=== PATIENT | male | born 1970 | race Caucasian/White ===

== ENCOUNTER 2020-08-07 09:43 | Observation (INO) | payer BC, OTHER ==
[2020-08-07] MEDS ORDERED: NITROGLYCERIN OINT 1 INCH/GM PACKET TOPICAL STA (10:06)
[2020-08-07] MEDS ORDERED: ASPIRIN 81 MG PO STA (10:06)
[2020-08-07 10:23] LABS: Basophils # (A) 0.1 k/uL (0-0.2); Basophils % (A) 1 %; Eosinophils # (A) 0.2 k/uL (0-0.7); Eosinophils % (A) 2 %; HCT 49.8 % (39.0-53.0); HGB 15.9 gm/dL (13.0-17.5); Lymphocytes # (A) 1.9 k/uL (1.0-4.8); Lymphocytes % (A) 20 %; MCH 30.3 pg (25.0-35.0); MCHC 31.9 g/dL (31.0-37.0); MCV 94.9 fL (80.0-100.0); Monocytes # (A) 0.5 k/uL (0-1.0); Monocytes % (A) 5 %; Neutrophils # (A) 6.8 k/uL (1.3-7.7); Neutrophils % (A) 71 %; Platelet Count 212 k/uL (150-450); RBC 5.25 m/uL (4.30-5.90); RDW 12.9 % (11.5-15.5); WBC 9.5 k/uL (3.8-10.6)
--- NOTE | 2020-08-07 10:31 | ED ---
General Adult HPI - General Chief complaint: Chest Pain Stated complaint: chest pain Time Seen by Provider: 08/07/20 09:45 Source: patient, RN notes reviewed, old records reviewed Mode of arrival: wheelchair Limitations: no limitations - History of Present Illness Initial comments: This is a 49-year-old male who presents emergency Department complaining of left-sided chest pain. Patient states been intermittent for about 6 months. Patient states this episode started yesterday and pretty significant at that time. Patient states he noticed a little radiation to his back as well as some shortness of breath. Patient states he hasn't come in the past because of the COVID but it was significant enough yesterday and did not go away today that he decided to come to the emergency department. Patient currently states it is an achiness in the left side of his chest. Patient denies any recent fever chills or new cough. Patient is a smoker and does have high cholesterol which is untreated. Patient denies any family history. Patient denies any headache patient denies lightheadedness dizziness or near syncopal episode. Patient denies any abdominal pain patient denies nausea vomiting or diarrhea. - Related Data Home Medications Medication Instructions Recorded Confirmed No Known Home Medications 08/07/20 08/07/20 Allergies Allergy/AdvReac Type Severity Reaction Status Date / Time No Known Allergies Allergy Verified 08/07/20 10:43 Review of Systems ROS Statement: Those systems with pertinent positive or pertinent negative responses have been documented in the HPI. ROS Other: All systems not noted in ROS Statement are negative. Past Medical History Past Medical History: Hyperlipidemia History of Any Multi-Drug Resistant Organisms: None Reported Past Surgical History: No Surgical Hx Reported Past Psychological History: No Psychological Hx Reported Smoking Status: Current every day smoker Past Alcohol Use History: None Reported Past Drug Use History: None Reported General Exam - General Exam Comments Initial Comments: GENERAL: Patient is well-developed and well-nourished. Patient is nontoxic and well- hydrated and is in mild distress. ENT: Neck is soft and supple. No significant lymphadenopathy is noted. Oropharynx is clear. Moist mucous membranes. Neck has full range of motion without eliciting any pain. EYES: The sclera were anicteric and conjunctiva were pink and moist. Extraocular movements were intact and pupils were equal round and reactive to light. Eyelids were unremarkable. PULMONARY: Unlabored respirations. Good breath sounds bilaterally. No audible rales rhonchi or wheezing was noted. CARDIOVASCULAR: There is a regular rate and rhythm without any murmurs gallops or rubs. Chest pain is not reproducible ABDOMEN: Soft and nontender with normal bowel sounds. SKIN: Skin is clear with no lesions or rashes and otherwise unremarkable. NEUROLOGIC: Patient is alert and oriented x3. Cranial nerves II through XII are grossly intact. Motor and sensory are also intact. Normal speech, volume and content. Symmetrical smile. MUSCULOSKELETAL: Normal extremities with adequate strength and full range of motion. No lower extremity swelling or edema. No calf tenderness. LYMPHATICS: No significant lymphadenopathy is noted PSYCHIATRIC: Normal psychiatric evaluation. Limitations: no limitations Course Vital Signs 08/07/20 09:46 Temperature 98.6 F Pulse Rate 74 Respiratory 18 Rate Blood Pressure 128/79 O2 Sat by Pulse 100 Oximetry Medical Decision Making - Medical Decision Making EKG shows normal sinus rhythm at 76 bpm MA interval is 172 QRS is 118 QT interval 370 QTC is 416. Patient's EKG shows no ST segment elevation or depression. Chest x-ray showed no acute abnormality. I spoke with [facility] admitted the patient reportedly orders and consult to cardiology. - Lab Data Result diagrams: 08/07/20 10:13 08/07/20 10:13 Lab Results 08/07/20 08/07/20 08/07/20 Range/Units 10:13 10:13 10:13 WBC 9.5 (3.8-10.6) k/uL RBC 5.25 (4.30-5.90) m/uL Hgb 15.9 (13.0-17.5) gm/dL Hct 49.8 (39.0-53.0) % MCV 94.9 (80.0-100.0) fL MCH 30.3 (25.0-35.0) pg MCHC 31.9 (31.0-37.0) g/dL RDW 12.9 (11.5-15.5) % Plt Count 212 (150-450) k/uL Neutrophils % 71 % Lymphocytes % 20 % Monocytes % 5 % Eosinophils % 2 % Basophils % 1 % Neutrophils # 6.8 (1.3-7.7) k/uL Lymphocytes # 1.9 (1.0-4.8) k/uL Monocytes # 0.5 (0-1.0) k/uL Eosinophils # 0.2 (0-0.7) k/uL Basophils # 0.1 (0-0.2) k/uL PT 10.0 (9.0-12.0) sec INR 1.0 (<1.2) APTT 24.4 (22.0-30.0) sec Sodium 139 (137-145) mmol/L Potassium 4.0 (3.5-5.1) mmol/L Chloride 105 (98-107) mmol/L Carbon Dioxide 24 (22-30) mmol/L Anion Gap 10 mmol/L BUN 8 L (9-20) mg/dL Creatinine 0.83 (0.66-1.25) mg/dL Est GFR (CKD-EPI)AfAm >90 (>60 ml/min/1.73 sqM) Est GFR (CKD-EPI)NonAf >90 (>60 ml/min/1.73 sqM) Glucose 118 H (74-99) mg/dL Calcium 9.6 (8.4-10.2) mg/dL Magnesium 1.9 (1.6-2.3) mg/dL Total Bilirubin 0.6 (0.2-1.3) mg/dL AST 28 (17-59) U/L ALT 20 (4-49) U/L Alkaline Phosphatase 75 (38-126) U/L Troponin I (0.000-0.034) ng/mL Total Protein 8.1 (6.3-8.2) g/dL Albumin 4.8 (3.5-5.0) g/dL 08/07/20 Range/Units 10:13 WBC (3.8-10.6) k/uL RBC (4.30-5.90) m/uL Hgb (13.0-17.5) gm/dL Hct (39.0-53.0) % MCV (80.0-100.0) fL MCH (25.0-35.0) pg MCHC (31.0-37.0) g/dL RDW (11.5-15.5) % Plt Count (150-450) k/uL Neutrophils % % Lymphocytes % % Monocytes % % Eosinophils % % Basophils % % Neutrophils # (1.3-7.7) k/uL Lymphocytes # (1.0-4.8) k/uL Monocytes # (0-1.0) k/uL Eosinophils # (0-0.7) k/uL Basophils # (0-0.2) k/uL PT (9.0-12.0) sec INR (<1.2) APTT (22.0-30.0) sec Sodium (137-145) mmol/L Potassium (3.5-5.1) mmol/L Chloride (98-107) mmol/L Carbon Dioxide (22-30) mmol/L Anion Gap mmol/L BUN (9-20) mg/dL Creatinine (0.66-1.25) mg/dL Est GFR (CKD-EPI)AfAm (>60 ml/min/1.73 sqM) Est GFR (CKD-EPI)NonAf (>60 ml/min/1.73 sqM) Glucose (74-99) mg/dL Calcium (8.4-10.2) mg/dL Magnesium (1.6-2.3) mg/dL Total Bilirubin (0.2-1.3) mg/dL AST (17-59) U/L ALT (4-49) U/L Alkaline Phosphatase (38-126) U/L Troponin I <0.012 (0.000-0.034) ng/mL Total Protein (6.3-8.2) g/dL Albumin (3.5-5.0) g/dL Disposition Clinical Impression: Chest pain Disposition: ADMITTED IP TO THIS [facility] Referrals: None,Stated [Primary Care Provider] - 1-2 days Time of Disposition: 11:37
[2020-08-07 10:32] LABS: Partial Thromboplastin Time 24.4 sec (22.0-30.0)
[2020-08-07 10:34] LABS: ALT 20 U/L (4-49); AST 28 U/L (17-59); African American GFR (CKD) >90 (>60 ml/min/1.73 sqM); Albumin 4.8 g/dL (3.5-5.0); Alkaline Phosphatase 75 U/L (38-126); Anion Gap 10 mmol/L; Blood Urea Nitrogen 8 mg/dL (9-20); Calcium 9.6 mg/dL (8.4-10.2); Carbon Dioxide 24 mmol/L (22-30); Chloride 105 mmol/L (98-107); Glucose 118 mg/dL (74-99); Magnesium 1.9 mg/dL (1.6-2.3); Non-African American GFR(CKD) >90 (>60 ml/min/1.73 sqM); Sodium 139 mmol/L (137-145); Total Bilirubin 0.6 mg/dL (0.2-1.3); Total Protein 8.1 g/dL (6.3-8.2)
--- NOTE | 2020-08-07 10:53 | XR ---
EXAMINATION TYPE: XR chest 2V DATE OF EXAM: 08/07/2020 COMPARISON: None INDICATION: Chest pain TECHNIQUE: Frontal and lateral views of the chest are obtained. FINDINGS: The heart size is normal. The pulmonary vasculature is normal. The lungs are clear. There is hyperinflation flattening the diaphragms. Correlate for good inspirato ry effort versus emphysematous change IMPRESSION: 1. Hyperinflation. 2. No acute pulmonary process.
[2020-08-07] MEDS ORDERED: NITROGLYCERIN SL TABS 0.4 MG TAB SUBLINGUAL PRN (12:49)
[2020-08-07] MEDS ORDERED: ACETAMINOPHEN TAB 325 MG TAB PO PRN (13:35)
[2020-08-07] MEDS: NICOTINE 21MG/24HR PATCH TRANSDERM SCH (13:54)
--- NOTE | 2020-08-07 21:00 | P.HPIM ---
History of Present Illness H&P Date: 08/07/20 Chief Complaint: Chest Pain Patient is a 49-year-old male with a known history of ongoing liquid and addiction 2 packs/day presents to ER with complaints of chest pain. Patient says it he has been having left retrosternal chest pain for the past 6 months. Yesterday evening he did have significant pain and since then he has been having constant nagging pain. Patient denied any radiation of the pain or associated shortness of breath. Patient has seen his chiropractician and had his ribs adjusted but did not relieve his pain. Patient presented to ER for evaluation. Patient was not able to come in earlier due to COVID-19 and pain was not significant enough compared to yesterday. Patient otherwise denies any complaints of fever or chills. Patient does have chronic cough which he attributed to smoking. Patient states that sometimes cough makes it better. Denies any family history of coronary artery disease. No headache or dizziness or lightheadedness. No neck pain or back pain. No nausea vomiting or abdominal pain or diarrhea. No recent illnesses or sick contacts. No recent travel. Patient does heavy lifting at work. Chest x-ray showed hyperinflation. No acute pulmonary process. EKG showed normal sinus rhythm. Laboratory data reviewed. Review of Systems Constitutional: Patient denies any fever or chills . No generalized weakness or weight loss. Abdomen: Patient denied nausea vomiting and diarrhea and abdominal pain. Cardiovascular: Patient does have CP . no short of breath no palpitations. Respiratory: patient denied any cough is from production. No shortness of breath Neurologic: Patient denied any numbness or tingling headache. Musculoskeletal: Patient denies any complaints of joint swelling or deformity. Skin: Negative Psychiatric: Negative Endocrine: No heat or cold intolerance. No recent weight gain. Genitourinary: No dysuria or hematuria. 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 History of Any Multi-Drug Resistant Organisms: None Reported Past Surgical History: No Surgical Hx Reported Past Anesthesia/Blood Transfusion Reactions: Unable to Obtain Additional Past Anesthesia/Blood Transfusion Reaction / Comment(s): Pt has never had anesthesia. Smoking Status: Current every day smoker - Past Family History Father Family Medical History: COPD, Osteoarthritis (OA) Additional Family Medical History / Comment(s): Father is . Mother Family Medical History: Cancer, Hyperlipidemia, Hypertension Additional Family Medical History / Comment(s): Mother of bone cancer at the age of 84 yrs. Medications and Allergies Home Medications Medication Instructions Recorded Confirmed Type No Known Home Medications 08/07/20 08/07/20 History Allergies Allergy/AdvReac Type Severity Reaction Status Date / Time No Known Allergies Allergy Verified 08/07/20 10:43 Physical Exam Vitals: Vital Signs Temp Pulse Pulse Resp BP BP Pulse Ox 08/07/20 13:26 98 F 65 18 118/78 98 08/07/20 13:04 98.6 F 62 18 111/75 99 08/07/20 13:00 62 18 111/75 99 08/07/20 12:00 62 18 110/80 99 08/07/20 11:00 59 L 18 114/76 98 08/07/20 10:49 61 18 125/71 98 08/07/20 09:46 98.6 F 74 18 128/79 100 Intake and Output 08/07/20 08/07/20 08/07/20 06:59 14:59 22:59 Other: Voiding Method Toilet Weight 94.347 kg PHYSICAL EXAMINATION: Patient is lying in the bed comfortably, no acute distress, awake alert and oriented.. HEENT: Normocephalic. Neck is supple. Pupils reactive. Nostrils clear. Oral cavity is moist. Ears reveal no drainage. Neck reveals no JVD, carotid bruits, or thyromegaly. CHEST EXAMINATION: Trachea is central. Symmetrical expansion. no wheezing. Lung simmons clear to auscultation and percussion. CARDIAC: Normal S1, S2 with no gallops. No murmurs ABDOMEN: Soft. Bowel sounds normal. No organomegaly. No abdominal bruits. Extremities: reveal no edema. No clubbing or cyanosis Neurologically awake, alert, oriented x3 with well-coordinated movements. No focal deficits noted Skin: No rash or skin lesions. Psychiatric: Coperative. Nonsuicidal Musculoskeletal: No joint swelling or deformity. Normal range of motion. Results CBC & Chem 7: 08/07/20 10:13 08/07/20 10:13 Labs: Abnormal Lab Results - Last 24 Hours (Table) 08/07/20 Range/Units 10:13 BUN 8 L (9-20) mg/dL Glucose 118 H (74-99) mg/dL Thrombosis Risk Factor Assmnt - Choose All That Apply Any of the Below Risk Factors Present?: Yes Each Factor Represents 1 point: Age 41-60 years, Obesity (BMI >25) Other Risk Factors: No Other congenital or acquired thrombophilia - If yes, enter type in comment: No Thrombosis Risk Factor Assessment Total Risk Factor Score: 2 Thrombosis Risk Factor Assessment Level: Low Risk Assessment and Plan Assessment: Atypical chest pain. Rule out ACS. Ongoing nicotine addiction with cigarette smoking 2 packs/day. DVT prophylaxis early ambulation. Plan: Patient will be continued on telemetry monitoring. Serial EKG and troponin x3. Lipid profile was ordered. Cardiology was consulted for further evaluation. Continue to follow closely. Smoking cessation has been counseled extensively.
[2020-08-07 23:22] LABS: Cholesterol 225 mg/dL (<200); HDL Cholesterol 39 mg/dL (40-60); LDL Cholesterol,Calculated 152 mg/dL (0-99); Triglycerides 169 mg/dL (<150)
[2020-08-08] MEDS: NICOTINE 21MG/24HR PATCH TRANSDERM SCH (07:59)
[2020-08-08] MEDS ORDERED: ASPIRIN 325 MG TAB PO SCH (09:00)
[2020-08-08] MEDS ORDERED: ATORVASTATIN 40 MG TAB PO SCH (09:00)
--- NOTE | 2020-08-08 10:46 | P.CRDCN ---
History of Present Illness History of present illness: HISTORY OF PRESENTING ILLNESS This is a pleasant 49-year-old male past medical history significant for chronic nicotine dependence. 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 We have been asked to see in consultation for chest pain. He states for the previous 6 months he has been experiencing a dull achy sensation in the left precordial region. He has no specific exacerbating factors it just comes at different times. It is described as an achy sensation and it is relieved by deep stretching. At times it radiates to the left scapular region. He recently saw a chiropractor and underwent an adjustment. He was told he has a displaced rib. He denies associated shortness of breath, dizziness, nausea, vomiting, diaphoresis or palpitations. He is physically quite active and works a job where he does a lot of heavy lifting. DIAGNOSTICS EKG reveals sinus mechanism with no acute ischemic changes. Chest xray evidence of hyperinflation with no acute cardiopulmonary process. Laboratory reviewed, EDC unremarkable, sodium 139, potassium 4.0, creatinine 0.83, magnesium 1.9, cardiac enzymes negative 3, LDL 152, HDL 39, triglycerides 169 and total cholesterol 225. He takes no daily cardiac medications. REVIEW OF SYSTEMS At the time of my exam: CONSTITUTIONAL: Denies fever or chills. CARDIOVASCULAR: Denies chest pain, shortness of breath, orthopnea, PND or palpitations. RESPIRATORY: Denies cough. GASTROINTESTINAL: Denies abdominal pain, diarrhea, constipation, nausea or vomiting. MUSCULOSKELETAL: Denies myalgias. NEUROLOGIC: Denies numbness, tingling or weakness. ENDOCRINE: Denies fatigue, weight change, polydipsia or polyurina. GENITOURINARY: Denies burning, hematuria or urgency with micturation. HEMATOLOGIC: Denies history of anemia or bleeding. PHYSICAL EXAMINATION Blood pressure 106/66 heart rate 59 afebrile and maintaining oxygen saturation on room air. CONSTITUTIONAL: No apparent distress. HEENT: Head is normocephalic. Pupils are equal, round. Sclerae anicteric. Mucous membranes of the mouth are moist. No JVD. No carotid bruit. CHEST EXAMINATION: Lungs are clear to auscultation. No chest wall tenderness is noted on palpation or with deep breathing. HEART EXAMINATION: Regular rate and rhythm. S1, S2 heard. No murmurs, gallops or rub. ABDOMEN: Soft, nontender. Positive bowel sounds. EXTREMITIES: 2+ peripheral pulses, no lower extremity edema and no calf tenderness. NEUROLOGIC EXAMINATION: Patient is awake, alert and oriented x3. ASSESSMENT Chest pain, atypical for angina. Seems musculoskeletal in nature. Chronic nicotine dependence Dyslipidemia PLAN An acute coronary event has been ruled out. His cardiovascular risk score is 10.6%. We recommend atorvastatin 40 mg daily along with aggressive lifestyle modifications. Perform stress echocardiogram to assess for stress induced ischemia. Follow up in the office with Dr. Deluna in 2 weeks. Thank you kindly for this consultation. Nurse Practitioner note has been reviewed, I agree with a documented findings and plan of care. Patient was seen and examined. 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 History of Any Multi-Drug Resistant Organisms: None Reported Past Surgical History: No Surgical Hx Reported Past Anesthesia/Blood Transfusion Reactions: Unable to Obtain Additional Past Anesthesia/Blood Transfusion Reaction / Comment(s): Pt has never had anesthesia. Smoking Status: Current every day smoker - Past Family History Father Family Medical History: COPD, Osteoarthritis (OA) Additional Family Medical History / Comment(s): Father is . Mother Family Medical History: Cancer, Hyperlipidemia, Hypertension Additional Family Medical History / Comment(s): Mother of bone cancer at the age of 84 yrs. Medications and Allergies Home Medications Medication Instructions Recorded Confirmed Type Atorvastatin [Lipitor] 40 mg PO DAILY #90 tab 08/08/20 Rx Allergies Allergy/AdvReac Type Severity Reaction Status Date / Time No Known Allergies Allergy Verified 08/07/20 10:43 Physical Exam Vitals: Vital Signs Temp Pulse Pulse Resp BP BP Pulse Ox 08/08/20 07:37 97.4 F L 59 L 16 106/66 98 08/08/20 02:47 97.5 F L 73 121/77 97 08/08/20 02:45 73 08/07/20 20:12 97.7 F 54 L 129/80 99 08/07/20 20:10 54 L 08/07/20 16:00 54 L 18 129/84 99 08/07/20 13:26 98 F 65 18 118/78 98 08/07/20 13:04 98.6 F 62 18 111/75 99 08/07/20 13:00 62 18 111/75 99 08/07/20 12:00 62 18 110/80 99 08/07/20 11:00 59 L 18 114/76 98 08/07/20 10:49 61 18 125/71 98 08/07/20 09:46 98.6 F 74 18 128/79 100 Intake and Output 08/07/20 08/08/20 08/08/20 22:59 06:59 14:59 Intake Total 570 Output Total 0 600 Balance 570 -600 Intake: Oral 570 Output: Urine 0 600 Other: Voiding Method Toilet Toilet # Voids 0 1 Results 08/07/20 10:13 08/07/20 10:13 Cardiac Enzymes 08/07/20 08/07/20 08/07/20 Range/Units 10:13 10:13 13:16 AST 28 (17-59) U/L Troponin I <0.012 <0.012 (0.000-0.034) ng/mL 08/07/20 Range/Units 15:55 AST (17-59) U/L Troponin I <0.012 (0.000-0.034) ng/mL Coagulation 08/07/20 Range/Units 10:13 PT 10.0 (9.0-12.0) sec APTT 24.4 (22.0-30.0) sec Lipids 08/07/20 Range/Units 10:13 Triglycerides 169 H (<150) mg/dL Cholesterol 225 H (<200) mg/dL HDL Cholesterol 39 L (40-60) mg/dL CBC 08/07/20 Range/Units 10:13 WBC 9.5 (3.8-10.6) k/uL RBC 5.25 (4.30-5.90) m/uL Hgb 15.9 (13.0-17.5) gm/dL Hct 49.8 (39.0-53.0) % Plt Count 212 (150-450) k/uL Comprehensive Metabolic Panel 08/07/20 Range/Units 10:13 Sodium 139 (137-145) mmol/L Potassium 4.0 (3.5-5.1) mmol/L Chloride 105 (98-107) mmol/L Carbon Dioxide 24 (22-30) mmol/L BUN 8 L (9-20) mg/dL Creatinine 0.83 (0.66-1.25) mg/dL Glucose 118 H (74-99) mg/dL Calcium 9.6 (8.4-10.2) mg/dL AST 28 (17-59) U/L ALT 20 (4-49) U/L Alkaline Phosphatase 75 (38-126) U/L Total Protein 8.1 (6.3-8.2) g/dL Albumin 4.8 (3.5-5.0) g/dL Current Medications Generic Name Dose Route Start Last Admin Trade Name Freq PRN Reason Stop Dose Admin Acetaminophen 650 mg 08/07/20 13:35 08/07/20 15:08 Acetaminophen Tab 325 Mg Tab PO 650 mg Q6HR PRN Administration Fever and/ or Pain Aspirin 325 mg 08/08/20 09:00 08/08/20 07:59 Aspirin 325 Mg Tab PO 325 mg DAILY SILVESTRE Administration Atorvastatin Calcium 40 mg 08/08/20 09:00 08/08/20 08:00 Atorvastatin 40 Mg Tab PO 40 mg DAILY SILVESTRE Administration Nicotine 1 patch 08/07/20 13:45 08/08/20 07:59 Nicotine 21mg/24hr Patch TRANSDERM 1 patch DAILY SILVESTRE Administration Nitroglycerin 0.4 mg 08/07/20 12:49 Nitroglycerin Sl Tabs 0.4 Mg Tab SUBLINGUAL Q5M PRN Chest Pain Intake and Output 08/07/20 08/08/20 08/08/20 22:59 06:59 14:59 Intake Total 570 Output Total 0 600 Balance 570 -600 Intake: Oral 570 Output: Urine 0 600 Other: Voiding Method Toilet Toilet # Voids 0 1 08/07/20 10:13 08/07/20 10:13
[2020-08-08 15:16] VITALS: BP 113/76; PULSE 70; RESP 20; TEMP 97.5
--- NOTE | 2020-08-08 15:32 | P.STRESS ---
- Stress Test Note Stress Test Results/Findings: Exam Performed: stress echo exercise Exam Date: 08/08/20 Reason for Exam: CHEST PAIN Height: 6 ft 1 in Weight: 94.35 kg Protocol: BRO Stage: 3 Duration of Exercise: 9:00 Resting Heart Rate: 58 Resting Blood Pressure: 113/79 Maximum Achieved Heart Rate: 167 Maximum Achieved Blood Pressure: 200/75 85% PMHR: 146 100% PMHR: 172 METS: 10.3 Technologist Comment: Stress Test Results/Findings: Baseline heart rate 58 beats a minute, Baseline blood pressure 130/79 mmHg Baseline 12-lead ECG shows sinus rhythm normal [place] normal ST segments Patient exercised on a Bro protocol for 9 minutes Peak heart rate 167 beats a minute Hypertensive response to exercise There was no ECG evidence for ischemia no arrhythmias were noted Baseline 2-D echo showed normal LV systolic function without segmental wall motion normalities at peak exercise there was excellent augmentation of overall LV contractility without development of any wall motion abnormalities @Recovery regional global LV systolic function remained normal Impression Hypertensive response to excise Good exercise capacity No ECG or echocardiographic evidence for ischemia
[2020-08-09] MEDS ORDERED: ASPIRIN 81 MG PO SCH (09:00)
--- NOTE | 2020-08-09 09:03 | ECHOS ---
Stress Test Results/Findings: Exam Performed: stress echo exercise Exam Date: 08/08/20 Reason for Exam: CHEST PAIN Height: 6 ft 1 in Weight: 94.35 kg Protocol: BRO Stage: 3 Duration of Exercise: 9:00 Resting Heart Rate: 58 Resting Blood Pressure: 113/79 Maximum Achieved Heart Rate: 167 Maximum Achieved Blood Pressure: 200/75 85% PMHR: 146 100% PMHR: 172 METS: 10.3 Technologist Comment: Stress Test Results/Findings: Baseline heart rate 58 beats a minute, Baseline blood pressure 130/79 mmHg Baseline 12-lead ECG shows sinus rhythm normal [place] narrow [place] normal ST segments Patient exercised on a Bro protocol for 9 minutes Peak heart rate 167 beats a minute Hypertensive response to exercise There was no ECG evidence for ischemia no arrhythmias were noted Baseline 2-D echo showed normal LV systolic function without segmental wall motion normalities at peak exercise there was excellent augmentation of overall LV contractility without development of any wall motion abnormalities @Recovery regional global LV systolic function remained normal Impression Hypertensive response to excise Good exercise capacity No ECG or echocardiographic evidence for ischemia MTDD
--- NOTE | 2020-08-23 11:56 | P.DS ---
Providers Date of admission: 08/07/20 12:57 Expected date of discharge: 08/08/20 Attending physician: Jackie Bowie Consults: 08/07/20 12:49 Consult Physician Urgent Consulting Provider: [facility] Consult Reason/Comments: Chest pain Do you want consulting provider notified?: Yes [facility] Course: Discharge diagnosis Atypical chest pain. Ruled out ACS. Ongoing nicotine addiction with cigarette smoking 2 packs/day. DVT prophylaxis early ambulation. Hospital course Patient is a 49-year-old male with a known history of ongoing liquid and addiction 2 packs/day presents to ER with complaints of chest pain. Patient says it he has been having left retrosternal chest pain for the past 6 months. Yesterday evening he did have significant pain and since then he has been having constant nagging pain. Patient denied any radiation of the pain or associated shortness of breath. Patient has seen his chiropractician and had his ribs adjusted but did not relieve his pain. Patient presented to ER for evaluation. Patient was not able to come in earlier due to COVID-19 and pain was not significant enough compared to yesterday. Patient otherwise denies any complaints of fever or chills. Patient does have chronic cough which he attributed to smoking. Patient states that sometimes cough makes it better. Denies any family history of coronary artery disease. No headache or dizziness or lightheadedness. No neck pain or back pain. No nausea vomiting or abdominal pain or diarrhea. No recent illnesses or sick cont acts. No recent travel. Patient does heavy lifting at work. Chest x-ray showed hyperinflation. No acute pulmonary process. EKG showed normal sinus rhythm. Patient was continued on telemetry monitoring. Serial EKG and troponin were negative. Patient was seen by cardiology. Underwent exercise stress test which is negative. Patient is cleared from cardiology standpoint and is being discharged home today. Hypertensive response to excise Good exercise capacity No ECG or echocardiographic evidence for ischemia PHYSICAL EXAMINATION: Patient is lying in the bed comfortably, no acute distress, awake alert and oriented.. HEENT: Normocephalic. Neck is supple. Pupils reactive. Nostrils clear. Oral cavity is moist. Ears reveal no drainage. Neck reveals no JVD, carotid bruits, or thyromegaly. CHEST EXAMINATION: Trachea is central. Symmetrical expansion. no wheezing. Lung simmons clear to auscultation and percussion. CARDIAC: Normal S1, S2 with no gallops. No murmurs ABDOMEN: Soft. Bowel sounds normal. No organomegaly. No abdominal bruits. Extremities: reveal no edema. No clubbing or cyanosis Neurologically awake, alert, oriented x3 with well-coordinated movements. No focal deficits noted Skin: No rash or skin lesions. Psychiatric: Coperative. Nonsuicidal Musculoskeletal: No joint swelling or deformity. Normal range of motion. Vital Signs Temp Pulse Pulse Resp BP BP Pulse Ox 08/08/20 07:37 97.4 F L 59 L 16 106/66 98 08/08/20 02:47 97.5 F L 73 121/77 97 08/08/20 02:45 73 08/07/20 20:12 97.7 F 54 L 129/80 99 08/07/20 20:10 54 L 08/07/20 16:00 54 L 18 129/84 99 08/07/20 13:26 98 F 65 18 118/78 98 08/07/20 13:04 98.6 F 62 18 111/75 99 08/07/20 13:00 62 18 111/75 99 08/07/20 12:00 62 18 110/80 99 08/07/20 11:00 59 L 18 114/76 98 08/07/20 10:49 61 18 125/71 98 08/07/20 09:46 98.6 F 74 18 128/79 100 Patient Condition at Discharge: Good Plan - Discharge Summary Discharge Rx Participant: No New Discharge Prescriptions: New Atorvastatin [Lipitor] 40 mg PO DAILY #90 tab Nicotine 21Mg/24Hr Patch [Habitrol] 1 patch TRANSDERM DAILY #21 patch Discharge Medication List Atorvastatin [Lipitor] 40 mg PO DAILY #90 tab 08/08/20 [Rx] Nicotine 21Mg/24Hr Patch [Habitrol] 1 patch TRANSDERM DAILY #21 patch 08/08/20 [Rx] Follow up Appointment(s)/Referral(s): Salazar Deluna MD [STAFF PHYSICIAN] - 2 Weeks (office will notify patient of appointment time and date.) None,Stated [REFERRING] - 1-2 days Patient Instructions/Handouts: Chest Pain (GEN), How to Stop Smoking (GEN) Discharge Disposition: HOME SELF-CARE
== END 2020-08-08 17:40 | disposition home or self-care (01) ==
LOC: EC 09:43 → 3NCARDOBS 12:57
PROVIDERS: ADMIT Internal Medicine; ATTEND Internal Medicine
DX: R07.89 Other chest pain (principal); R06.02 Shortness of breath; R05 Cough; R03.0 Elevated blood-pressure reading, without diagnosis of hypertension; E78.5 Hyperlipidemia, unspecified; F17.210 Nicotine dependence, cigarettes, uncomplicated; E78.00 Pure hypercholesterolemia, unspecified; E66.9 Obesity, unspecified; Z71.6 Tobacco abuse counseling; Z68.27 Body mass index [BMI] 27.0-27.9, adult; Z82.5 Family history of asthma and other chronic lower respiratory diseases; Z82.61 Family history of arthritis; Z80.8 Family history of malignant neoplasm of other organs or systems; Z83.438 Family history of other disorder of lipoprotein metabolism and other lipidemia; Z82.49 Family history of ischemic heart disease and other diseases of the circulatory system
CPT/HCPCS: 93005 ×2; 99285; 36415; 93351; 80061; 80053; 83735; 84484; 85025; 85610; 85730; 71046; G0378 ×2; S4990 ×2